=== PATIENT | female | born 1965 | race Caucasian/White ===

== ENCOUNTER 2016-11-26 18:17 | Emergency (ER) | payer OTHER ==
[~2016-11-26] VITALS: Ht 170.2 cm; Wt 80.7 kg
--- NOTE | 2016-11-26 18:51 | ED HAND/WRIST INJURY COMPLAINT ---
History of Present Illness General Chief Complaint: Hand or Wrist Injury Stated Complaint: LEFT HAND PAIN AND LIMITED ROM Source: patient, old records Exam Limitations: no limitations Vital Signs & Intake/Output Vital Signs & Intake/Output Vital Signs Date Time Temp Pulse Resp B/P B/P Pulse O2 O2 Flow FiO2 Mean Ox Delivery Rate 11/26 1902 140/72 11/26 1821 97.9 100 18 182/101 98 Room Air Allergies Coded Allergies: ciprofloxacin (From CIPRO) (Severe, SWELLING, RASH 11/26/16) sulfamethoxazole (From BACTRIM) (Severe, SWELLING, RASH 11/26/16) trimethoprim (From BACTRIM) (Severe, SWELLING, RASH 11/26/16) Triage Note: 51 Y/O FEMALE C/O PAIN/SWELLING TO L 3RD, 4TH, 5TH FINGERS S/P JAMMING THEM IN COOLER YESTERDAY. STATES DIFFICULTY MAKING A FIST. HAD TO REMOVE RINGS DUE TO SWELLING. DENIES INVOLEMENT OF WRIST. XRAY ORDERED Triage Nurses Notes Reviewed? yes Occurred: yesterday Duration: day(s): (2), constant Timing: recent history Injury Environment: home Severity: mild, moderate Severity Numbers: 4 Pain/Injury Location: Left: 3rd finger, 4th finger, 5th finger. No Modifying Factors: none Associated Symptoms: none HPI: 51-year-old female presents to ER for evaluation complaining of pain to her left third fourth and fifth fingers after she jammed her fingers while dumping the opening cooler. The fingers were flexed. She is [id number] she states she's had mild aching pain since yesterday when it occurred however she has not taken anything for her mild aching pain nonradiating she denies any hand or wrist injury no difficulty with range motion of her wrist or hands her first and second fingers are atraumatic without pain. There are no modifying factors or associated symptoms otherwise. Past History Travel History Traveled to [place] past 21 day No Medical History Any Pertinent Medical History? see below for history Neurological: NONE EENT: NONE Cardiovascular: NONE Respiratory: asthma Gastrointestinal: NONE Hepatic: NONE Renal: NONE Musculoskeletal: NONE Psychiatric: NONE Endocrine: NONE Blood Disorders: NONE Cancer(s): NONE [employer]/Reproductive: NONE Surgical History Surgical History: none Psychosocial History What is your primary language [place] Tobacco Use: Quit >30 days ago Family History Hx Contributory? No Review of Systems Review of Systems Constitutional: Reports: see HPI. All Other Systems: Reviewed and Negative Comments Review of systems: See HPI, All other systems negative. Constitutional, no chills no fever, no malaise HEENT: No visual changes no sore throat no congestion, Cardiovascular: No chest pain , no palpitation Skin: no rashes, no change in skin Respiratory: No dyspnea no cough GI: No nausea no vomiting, no diarrhea Muscle skeletal: No joint pain, no joint swelling, no back pain, no neck pain, Neurologic: No numbness no headache Psych: No stress Heme/endocrine: No bruisin Immunology: No lymphadenopathy Physical Exam Physical Exam General Appearance: well developed/nourished, no apparent distress, alert, awake Hand Left: limited range of motion, 3rd finger, 4th finger, 5th finger Hand Right: normal inspection, normal range of motion Comments: Well-developed well-nourished patient in no apparent distress. HEENT: Atraumatic, extraocular motion intact Neck: Supple, FROM Back: FROM Respiratory: No respiratory distress. Patient speaking in full complete sentences. Breath sounds clear to auscultation bilaterally: NO W/R/R Shoulder: Atraumatic/Stable. FROM . Elbow: Atraumatic/stable. FROM. No laxity Upper arm/Forearm: Atraumatic. Nontender. No edema, 5 out of 5 news clipping cutter strength noted to bilateral upper extremities Hand/Wrist: Atraumatic/stable. Skin intact. Patient has limited range of motion flexion of the left third fourth and fifth fingers at the PIP joint, capillary refill is within normal limits there is no swelling there is no ecchymosis, and the rest of the hand and first and second finger are atraumatic with full range of motion FROM Pulses: Normal/equal radial pulses bilaterally. Brisk cap refillUpper Extremities: full range of motion Lower extremities: Full range of motion Neuro: awake, alert, and oriented to person, place and time. There were no obvious focal neurologic abnormalities. Skin: Warm & dry;No appreciable rash on exposed skin Psych: Mood affect normal, normal memory normal judgment. Progress Differential Diagnosis: contusion, compartment syndrome, dislocation, fracture, sprain, TENDON INJURY Plan of Care: Discussed with the patient at length her x-ray results, fingers were mikayla taped I discussed with the patient at length all of their results. I had an extensive conversation regarding need for close follow up with their primary care physician this week as well as return precautions. I answered all of their questions, they feel comfortable with the plan and follow-up care. Diagnostic Imaging: Viewed by Me: Radiology Read. Discussed w/RAD: Radiology Read. Radiology Impression: PATIENT: XIOMARA CHAVES PRESENT AGE : 51 PATIENT ACCOUNT NO: [id number] : 63 LOCATION: [facility] ORDERING PHYSICIAN: KATIE AGUERO MD SERVICE DATE: 11/26/16 EXAM TYPE: RAD - XRY-HAND, LEFT EXAMINATION: XR HAND, LEFT CLINICAL INFORMATION: Pain and swelling. COMPARISON: None TECHNIQUE: AP, lateral, and oblique views of the left hand. FINDINGS: No fracture or dislocation. Alignment is anatomic. No cortical disruption. Joint spaces are maintained. The soft tissues are unremarkable. IMPRESSION: Unremarkable left hand radiographs. DICTATED BY: DAYANNA DICKENS MD DATE/TIME DICTATED:11/26/161844 CLEANING MATRON:RUSLAN DATE/TIME TRANSCRIBED:11/26/161844 CONFIDENTIAL, DO NOT COPY WITHOUT APPROPRIATE AUTHORIZATION. <Electronically signed in Other Vendor System> SIGNED BY: ADYANNA DICKENS MD 11/26/16 185 Departure Departure Time of Disposition: 1853 Disposition: HOME OR SELF CARE Condition: Stable Clinical Impression Primary Impression: Finger sprain Referrals: OLIVIA QUEEN,TRIPP Hernandez (PCP/Family) Additional Instructions: rest, ice tylenol or motrin for pain. follow up with your pmd, return to the er with any concerns Departure Forms: Customer Survey General Discharge Information
[2016-11-26 19:02] VITALS: BP 140/72
== END 2016-11-26 19:02 ==
LOC: ERH 18:17
DX: S63.613A Unspecified sprain of left middle finger, initial encounter (principal); S63.615A Unspecified sprain of left ring finger, initial encounter; S63.617A Unspecified sprain of left little finger, initial encounter; W23.0XXA Caught, crushed, jammed, or pinched between moving objects, initial encounter; Y92.9 Unspecified place or not applicable; Y93.9 Activity, unspecified
CPT/HCPCS: 73130-LT